=== PATIENT | female | born 1985 | race Caucasian/White ===

== ENCOUNTER 2018-02-24 09:51 | Outpatient (CLI) | payer OTHER ==
[2018-02-24 12:59] LABS: BASOPHILS # (AUTO) 0.1 10^3/uL (0.0-0.1); BASOPHILS % (AUTO) 1.3 %; EOSINOPHILS # (AUTO) 0.5 10^3/uL (0.0-0.7); EOSINOPHILS % (AUTO) 7.4 %; HGB - HEMOGLOBIN 13.3 g/dL (12.0-16.0); LYMPHOCYTES # (AUTO) 1.5 10^3/uL (1.5-3.5); LYMPHOCYTES % (AUTO) 22.9 %; MEAN CORPUSCULAR HGB CONC 34.3 g/dL (32.0-36.0); MEAN CORPUSCULAR VOLUME 87.5 fL (81.0-99.0); MONOCYTES # (AUTO) 0.4 10^3/uL (0.0-1.0); NEUTROPHILS # (AUTO) 4.1 10^3/uL (1.5-6.6); NEUTROPHILS % (AUTO) 62.4 %; PLT - PLATELET COUNT 286 10^3/uL (130-450); RED BLOOD COUNT 4.44 10^6/uL (4.20-5.40); RED CELL DISTRIBUTION WIDTH 14.3 % (12.0-15.0); WHITE BLOOD COUNT 6.6 x10^3/uL (4.8-10.8)
[2018-02-24 13:40] LABS: ALBUMIN 3.7 g/dL (3.2-5.5); ALBUMIN/GLOBULIN RATIO 1.1 (1.0-2.2); ALKALINE PHOSPHATASE 64 IU/L (42-121); ALT ALANINE AMINOTRANSFERASE 18 IU/L (10-60); AST ASPARTATE AMINOTRANSFERASE 21 IU/L (10-42); BILIRUBIN,TOTAL 0.4 mg/dL (0.2-1.0); BUN - BLOOD UREA NITROGEN 10 mg/dL (6-20); CALCIUM 8.4 mg/dL (8.5-10.3); CARBON DIOXIDE - CO2 20 mmol/L (21-32); CHLORIDE 113 mmol/L (101-111); CHOL/HDL RATIO 5.1 (<4.4); CHOLESTEROL 178 mg/dL; CREATININE 0.8 mg/dL (0.4-1.0); GFR - MDRD 82 (>89); GLUCOSE 90 mg/dL (70-100); HDL CHOLESTEROL 35 mg/dL; LDL CHOLESTEROL,CALCULATED 116 mg/dL; LDL/HDL RATIO 3.3 (<4.4); SODIUM 138 mmol/L (135-145); TOTAL PROTEIN 7.1 g/dL (6.7-8.2); VLDL CHOLESTEROL 27 mg/dL
== END 2018-02-24 09:52 | disposition home or self-care (01) ==
LOC: LAB.WCP 09:51
PROVIDERS: ATTEND Physician Assistant Medical
DX: N05.9 Unspecified nephritic syndrome with unspecified morphologic changes (principal); D70.9 Neutropenia, unspecified; D63.1 Anemia in chronic kidney disease; E83.30 Disorder of phosphorus metabolism, unspecified; N25.81 Secondary hyperparathyroidism of renal origin; R80.9 Proteinuria, unspecified
CPT/HCPCS: 36415; 80053; 80061; 83721; 84443; 85025

== ENCOUNTER 2018-09-24 09:47 | Outpatient (CLI) | payer OTHER ==
[2018-09-24 13:02] LABS: BASOPHILS # (AUTO) 0.1 10^3/uL (0.0-0.1); BASOPHILS % (AUTO) 1.4 %; EOSINOPHILS # (AUTO) 0.3 10^3/uL (0.0-0.7); EOSINOPHILS % (AUTO) 4.6 %; HGB - HEMOGLOBIN 13.6 g/dL (12.0-16.0); LYMPHOCYTES # (AUTO) 1.7 10^3/uL (1.5-3.5); LYMPHOCYTES % (AUTO) 23.1 %; MEAN CORPUSCULAR HEMOGLOBIN 29.4 pg (27.0-31.0); MEAN CORPUSCULAR HGB CONC 32.7 g/dL (32.0-36.0); MEAN CORPUSCULAR VOLUME 90.1 fL (81.0-99.0); MEAN PLATELET VOLUME 8.9 fL (7.9-10.8); MONOCYTES # (AUTO) 0.5 10^3/uL (0.0-1.0); MONOCYTES % (AUTO) 6.3 %; NEUTROPHILS # (AUTO) 4.8 10^3/uL (1.5-6.6); NEUTROPHILS % (AUTO) 64.6 %; PLT - PLATELET COUNT 285 10^3/uL (130-450); RED BLOOD COUNT 4.61 10^6/uL (4.20-5.40); RED CELL DISTRIBUTION WIDTH 14.2 % (12.0-15.0); WHITE BLOOD COUNT 7.4 x10^3/uL (4.8-10.8)
[2018-09-24 13:05] LABS: ALBUMIN 3.7 g/dL (3.2-5.5); ALBUMIN/GLOBULIN RATIO 1.1 (1.0-2.2); BILIRUBIN,TOTAL 0.5 mg/dL (0.2-1.0); CALCIUM 8.8 mg/dL (8.5-10.3); CREATININE 0.7 mg/dL (0.4-1.0); TOTAL PROTEIN 7.1 g/dL (6.7-8.2)
== END 2018-09-24 23:59 | disposition home or self-care (01) ==
LOC: LAB.WCP 09:47
PROVIDERS: ATTEND Physician Assistant Medical
DX: K21.9 Gastro-esophageal reflux disease without esophagitis (principal)
CPT/HCPCS: 36415; 80053; 83690; 85025

== ENCOUNTER 2018-10-08 10:09 | Outpatient (CLI) | payer OTHER ==
--- NOTE | 2018-10-08 12:57 | XRAY Report ---
Reason: ALLERGIC RHINITIS Procedure Date: 10/08/2018 Accession Number: [id number] / [id number] Procedure: WCP - Sinus Johnson View CPT Code: FULL RESULT: EXAM: SINGLE VIEW OF SINUS RADIOGRAPH. EXAM DATE: 10/08/2018 10:19 AM. CLINICAL HISTORY: Allergic rhinitis. COMPARISONS: None. TECHNIQUE: Single Johnson' view. FINDINGS: Bones: Normal. No fractures or bone lesions. Sinuses: I have fluid levels are seen in the right and left maxillary sinuses, right greater than the left, approximately 25% of visualized volume. Other: Normal. No soft tissue swelling. IMPRESSION: Air-fluid levels in both maxillary sinuses. RADIA
== END 2018-10-08 10:10 | disposition home or self-care (01) ==
LOC: DI.WCP 10:09
PROVIDERS: ATTEND Physician Assistant Medical
DX: J30.9 Allergic rhinitis, unspecified (principal)
CPT/HCPCS: 70210

== ENCOUNTER 2023-06-07 10:54 | Outpatient (CLI) | payer OTHER ==
--- NOTE | 2023-06-08 08:48 | XRAY Report ---
PROCEDURE: Sacrum/Coccyx INDICATIONS: COCCYX PAIN TECHNIQUE: 2 views of the sacrum and coccyx acquired. COMPARISON: None. FINDINGS: Bones: No fractures or dislocations. No suspicious bony lesions. Soft tissues: Visualized bowel gas pattern is normal. No suspicious soft tissue densities. IMPRESSION: No acute bony abnormality. Reviewed by: Chris Yanez MD on 06/08/2023 8:47 AM [facility] Approved by: Chris Yanez MD on 06/08/2023 8:47 AM [facility] Station ID: [id number]
== END 2023-06-07 10:55 | disposition home or self-care (01) ==
LOC: DI.N 10:54
PROVIDERS: ATTEND Physician Assistant Medical
DX: M53.3 Sacrococcygeal disorders, not elsewhere classified (principal)

== ENCOUNTER 2023-07-05 10:10 | Outpatient (CLI) | payer OTHER ==
--- NOTE | 2023-07-05 14:41 | MRI Report ---
PROCEDURE: Pelvis WO INDICATIONS: COCCYX PAIN TECHNIQUE: Noncontrast coronal T1 spin echo, STIR, and T2 haste with and without fat saturation; axial T1 spin-e cho, STIR, and T2 haste; and sagittal T1 spin-echo and T2 haste through the bony pelvis. COMPARISON: Sacrum/coccyx radiographs 06/07/2023. FINDINGS: Image quality: Excellent. Bones: No acute fracture or bone injury or fracture. Coccygeal vertebrae are normally aligned. There is mild sclerosis adjacent to the sacroiliac joints with suspected small osteophytes. No definite oss eous erosion or acute osseous edema is seen. Mild degenerative changes are seen at the sacroiliac eugene nts bilaterally with mild subchondral sclerosis. No signs of acute sacroiliitis. Mild facet hypertrop hy is seen in the included lumbar spine. Hip joints appear to be intact. Soft tissues: The muscles surrounding the pelvis are normal in bulk. Piriformis muscles are symmetric . No presacral edema or mass. No acute tendon tearing is seen. Soft tissues of the pelvis demonstrate no acute abnormality. No significant lymphadenopathy. 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 No signs of active sacroiliitis. 2.Normal appearance of the coccyx. No acute trabecular bone injury or fracture. Reviewed by: Bakari Avila MD on 07/05/2023 2:39 PM PST Approved by: Bakari Avila MD on 07/05/2023 2:39 PM PST Station ID: [id number]
== END 2023-07-05 10:11 | disposition home or self-care (01) ==
LOC: DI 10:10
PROVIDERS: ATTEND Physician Assistant Medical
DX: M48.38 Traumatic spondylopathy, sacral and sacrococcygeal region (principal)